=== PATIENT | female | born 1980 | race Caucasian/White ===

== ENCOUNTER 2022-01-08 09:14 | Emergency (ER) | payer OTHER ==
[~2022-01-08] VITALS: Ht 170.2 cm; Wt 67.1 kg
[2022-01-08 09:17] VITALS: BP_SYST 108
--- NOTE | 2022-01-08 10:10 | NUR ---
FIRST CONTACT WITH PT. PT REPORTS L SIDED ABD PAIN, DESCRIBES OT TIGHT AND WORSE WITH DEEP BREATHS. PT REPORTS HX OF FREQUENT UTIS IN PAST YEAR. PT STATES HER URINE APPEARS A LITTLE DARK WITH URINARY FREQUENCY. DENIES FEVER, CHILLS, N/V/D. VSS. RESP EVEN AND UNLABORED. WILL CONT TO MONITOR
[2022-01-08] MEDS ORDERED: KETOROLAC TROMETHAMINE 30 MG VIAL IVP ONE (10:30)
[2022-01-08] MEDS ORDERED: NACL 0.9% 1,000 ML IV ONE (10:30)
[2022-01-08 10:36] LABS: ALBUMIN 4.1 g/dL (3.4-4.8); CALCIUM 10.4 mg/dL (8.4-11.0); CREATININE 0.97 mg/dL (0.55-1.30); POTASSIUM 4.2 mmol/L (3.5-5.1); TOTAL BILIRUBIN 0.5 mg/dL (0.0-1.0)
[2022-01-08 10:39] LABS: BILIRUBIN,URINE NEGATIVE (NEGATIVE); BLOOD, URINE 1+ (NEGATIVE); COLOR,URINE YELLOW (YELLOW); GLUCOSE,URINE NEGATIVE (NEGATIVE); KETONES,URINE NEGATIVE (NEGATIVE); LEUKOCYTE ESTERASE ,URINE 1+ (NEGATIVE); NITRITE, URINE NEGATIVE (NEGATIVE); PH,URINE 6.5 (5.0-8.0); PROTEIN URINE NEGATIVE (NEGATIVE); UROBILINOGEN,URINE 0.2 (0.2-1.0)
[2022-01-08 10:41] LABS: CLARITY/URINE SLIGHTLY HAZY (CLEAR)
[2022-01-08 10:41] LABS: BASOPHILS # (AUTO) 0.1 K/uL (0.0-0.2); EOSINOPHILS # (AUTO) 0.1 K/uL (0.0-0.4); EOSINOPHILS % (AUTO) 0.9 % (0.0-4.0); HEMOGLOBIN 13.8 g/dL (12.0-16.0); LYMPHOCYTES # (AUTO) 1.6 K/uL (1.0-5.5); LYMPHOCYTES % (AUTO) 24.5 % (20.5-51.5); MEAN CORPUSCULAR HEMOGLOBIN 32 pg (27-31); MEAN CORPUSCULAR HGB CONC 35 % (32-36); MEAN CORPUSCULAR VOLUME 91 fL (79.0-98.0); MONOCYTES # (AUTO) 0.6 K/uL (0.0-1.0); MONOCYTES % (AUTO) 8.3 % (1.7-9.3); NEUTROPHILS # (AUTO) 4.4 K/uL (1.8-7.7); NEUTROPHILS % (AUTO) 65.3 % (40.0-70.0); PLATELET COUNT (AUTO) 246 K/uL (130-430); RED BLOOD CELL COUNT(AUTO) 4.28 MIL/uL (4.2-6.2); RED CELL DISTRIBUTION WIDTH 12.2 % (9.0-15.0); WHITE BLOOD COUNT (AUTO) 6.7 K/uL (4.8-10.8)
[2022-01-08 10:53] LABS: BACTERIA,URINE FEW /HPF (None Seen)
[2022-01-08] MEDS ORDERED: iohexoL 350 mgI/mL, 100 ML INFUS..BTL IV ONE (11:13)
[2022-01-08] MEDS ORDERED: cefTRIAXone 1 GM IVPB PREMIX 50 ML IV ONE (12:00)
[2022-01-08] MEDS ORDERED: CEPH250C PO (13:02)
[2022-01-08] MEDS ORDERED: NAPR220C15 PO (13:03)
[2022-01-08] MEDS ORDERED: PHEN-726 PO (13:03)
[2022-01-08 13:10] VITALS: BP_SYST 103
--- NOTE | 2022-01-08 13:16 | NUR ---
DC INSTRUCTIONS GIVEN TO PT AND DISCUSSED. QUESTIONS ANSWERED. REVIEWED NEW RXS WITH PT. VERB UNDERSTANDING. VSS. RESP EVEN AND UNLABORED. AMBULATORY WITH STEADY GAIT AND STABLE FOR DC HOME
[2022-01-08] MEDS ORDERED: POSA100T PO (13:17)
== END 2022-01-08 13:18 | disposition home or self-care (01) ==
LOC: SED 09:14
DX: R10.32 Left lower quadrant pain (principal); R10.12 Left upper quadrant pain; N39.0 Urinary tract infection, site not specified; N28.1 Cyst of kidney, acquired; N83.291 Other ovarian cyst, right side; N28.9 Disorder of kidney and ureter, unspecified; Z79.899 Other long term (current) drug therapy
CPT/HCPCS: 99285; 74177; 96365; 96361; 96375; 80053; 81000; 83690; 85025; 87086; 36415; 76376; 81025; Q9967; J0696; J1885; J7030